=== PATIENT | female | born 1985 | race Caucasian/White ===

== ENCOUNTER 2023-05-05 06:26 | Day surgery (SDC) | payer SELFPAY ==
[2023-04-29 10:32] VITALS: BMI 27.3
[2023-05-05] MEDS ORDERED: ceFAZolin SODIUM 1 GM VIAL ONE ×2 (07:16→07:24)
[2023-05-05] MEDS ORDERED: GENTAMICIN SO4 80 MG/2 ML VIAL ONE (07:17)
[2023-05-05] MEDS ORDERED: POLYMYXIN B SULFATE 500,000 UNIT VIAL ONE (07:17)
[2023-05-05] MEDS ORDERED: ONDANSETRON 4 MG/2 ML VIAL ONE (07:24)
[2023-05-05] MEDS ORDERED: DEXAMETHASONE SOD PHOSPHATE 4 MG/1 ML VIAL ONE (07:24)
[2023-05-05] MEDS ORDERED: MIDAZOLAM HCL 2 MG/2 ML SINGLE DOSE VIAL ONE (07:24)
[2023-05-05] MEDS ORDERED: LIDOCAINE HCL/PF 2% SDV 5ML VIAL ONE ×2 (07:24→11:52)
[2023-05-05] MEDS ORDERED: PROPOFOL 40 ML ONE (07:24)
[2023-05-05] MEDS ORDERED: ROCURONIUM BROMIDE 50 MG/5 ML SYRINGE ONE ×2 (07:24→09:23)
[2023-05-05] MEDS ORDERED: BACITRACIN ZINC 15 GM TUBE TOPICAL OINTMENT ONE (07:40)
[2023-05-05] MEDS ORDERED: GUM MASTIC/STORAX/MSAL/ALCOHOL 1 DRP DROPSBTL MC ONE (07:41)
[2023-05-05] MEDS ORDERED: ONDANSETRON 4 MG/2 ML VIAL IVPUSH PRN (07:53)
[2023-05-05] MEDS ORDERED: PROMETHAZINE HCL 25 MG/1 ML VIAL IVPB PRN (07:53)
[2023-05-05] MEDS ORDERED: oxyCODONE HCL 5 MG TABLET PO PRN ×4 (07:53→13:00)
[2023-05-05] MEDS ORDERED: ACETAMINOPHEN INJECTION 100 ML IVPB ONE (07:55)
[2023-05-05] MEDS ORDERED: LACTATED RINGERS SOLUTION 1,000 ML IV SCH ×2 (08:00→13:00)
[2023-05-05] MEDS ORDERED: BUPIVACAINE HCL/PF 2.5 MG/ML - 30 ML VIAL IJ ONE (08:06)
[2023-05-05] MEDS ORDERED: NITROGLYCERIN 2% OINTMENT - 1GM PACKET TD ONE (08:06)
[2023-05-05] MEDS ORDERED: SUGAMMADEX SODIUM 200 MG/2 ML VIAL ONE (08:46)
[2023-05-05] MEDS ORDERED: CLINDAMYCIN 600MG PREMIX IVPB 1,200 MG/100 ML BAG IVPB ONE (09:14)
[2023-05-05] MEDS ORDERED: PROPOFOL 20 ML ONE (09:24)
[2023-05-05] MEDS ORDERED: HYDROmorphone HCL/PF 1 MG/ML VIAL ONE (11:20)
[2023-05-05] MEDS ORDERED: ONDANSETRON 4 MG/2 ML VIAL IVPB PRN (13:55)
[2023-05-05 14:29] VITALS: RESP 17; TEMP 98.6
[2023-05-05 14:41] VITALS: BP 110/50; PULSE 83
== END 2023-05-05 14:56 | disposition home or self-care (01) ==
LOC: FASU 06:26
PROVIDERS: ATTEND Plastic Surgery
PROC: 0H0V0ZZ Alteration of Bilateral Breast, Open Approach (ICD-10-PCS; 2023-05-05)
PROC: 0HPU0JZ Removal of Synthetic Substitute from Left Breast, Open Approach (ICD-10-PCS; principal; 2023-05-05 08:42)
PROC: 0HPT0JZ Removal of Synthetic Substitute from Right Breast, Open Approach (ICD-10-PCS; 2023-05-05 08:42)
DX: T85.44XA Capsular contracture of breast implant, initial encounter (principal); T85.43XA Leakage of breast prosthesis and implant, initial encounter; Y82.8 Other medical devices associated with adverse incidents; Y92.9 Unspecified place or not applicable
CPT/HCPCS: 81025; 88300-TC; 88304-TC; 94760